=== PATIENT | female | born 1960 | race Caucasian/White ===

== ENCOUNTER 2024-01-22 07:20 | Day surgery (SDC) | payer MEDICAID, OTHER ==
[~2024-01-22] VITALS: Ht 162.6 cm; Wt 79.4 kg
[2024-01-22] MEDS ORDERED: MEPERIDINE 100 MG INJ. 100 MG/ML VIAL ONE (07:27)
[2024-01-22] MEDS ORDERED: MIDAZOLAM HCL 5 MG/5 ML VIAL ONE (07:28)
[2024-01-22 10:04] VITALS: O2SAT 98
[2024-01-22 13:50] VITALS: BP_SYST 127; PULSE 59; RESP 11; TEMP 98.9
== END 2024-01-22 10:40 | disposition home or self-care (01) ==
LOC: SDS 07:20 → SMU 07:21 → SDS 10:40
PROVIDERS: ATTEND Student in an Organized Health Care Education/Training Program
DX: K62.5 Hemorrhage of anus and rectum (principal); D12.8 Benign neoplasm of rectum; K57.30 Diverticulosis of large intestine without perforation or abscess without bleeding; K64.8 Other hemorrhoids; F32.A Depression, unspecified; E78.00 Pure hypercholesterolemia, unspecified; Z79.899 Other long term (current) drug therapy; Z86.010 Personal history of colon polyps; Z80.0 Family history of malignant neoplasm of digestive organs
CPT/HCPCS: 45380; 45385; 99152; 88305; 99153; G0378; J2250; J2175; 45382